=== PATIENT | male | born 2000 | race Caucasian/White ===

== ENCOUNTER 2018-03-11 12:34 | Emergency (ER) | payer OTHER ==
[2018-03-11 12:44] VITALS: BP 109/57; PULSE 65; TEMP 97.3; BMI 30.9
[2018-03-11] MEDS ORDERED: SODIUM CHLORIDE 0.9% 1000 ML INFUS.BAG IV ONE (12:49)
--- NOTE | 2018-03-11 12:49 | PDOC ---
History of Present Illness - General Chief Complaint: Syncope/Near Syncope Stated Complaint: SYNCOPE (RAPID RESPONSE) Time Seen by Provider: 03/11/18 12:48 Past History - Past Medical History Allergies/Adverse Reactions: Allergies Allergy/AdvReac Type Severity Reaction Status Date / Time No Known Allergies Allergy Verified 03/11/18 12:39 COPD: No - Suicide/Smoking/Psychosocial Hx Smoking History: Never smoked Have you smoked in the past 12 months: No Information on smoking cessation initiated: No Hx Alcohol Use: No Drug/Substance Use Hx: No Substance Use Type: None *Physical Exam - Vital Signs Last Vital Signs Temp Pulse Resp BP Pulse Ox 97.3 F L 65 20 109/57 99 03/11/18 12:40 03/11/18 12:40 03/11/18 12:40 03/11/18 12:40 03/11/18 12:40
--- NOTE | 2018-03-11 12:52 | PDOC ---
History of Present Illness - General Chief Complaint: Syncope/Near Syncope Stated Complaint: SYNCOPE (RAPID RESPONSE) Time Seen by Provider: 03/11/18 12:48 - History of Present Illness Initial Comments: Patient is 17 yo male, with no significant past medical history who presents to ED after rapid response in outpt lab department in [facility]. Pt had not eaten anything this AM and received blood draws this AM at [facility]. After receiving lab draws, pt went to bathroom and upon returning was noted by labor relations specialist to be tremulous with skin pallor. Pt was complaining of lightheadness, nausea at the time. Rapid response was called. Pt was given orange juice to drink and upon evaluation by ED staff during RR, his symptoms had improved, complaining only of mild nausea. Pt was taken to ED and evaluated. Vitals in ED were noted to be normal, BGM was ~150. 03/11/18 12:51 Past History - Past Medical History Allergies/Adverse Reactions: Allergies Allergy/AdvReac Type Severity Reaction Status Date / Time No Known Allergies Allergy Verified 03/11/18 12:39 Home Medications: Ambulatory Orders NK [No Known Home Medication] 03/11/18 COPD: No - Suicide/Smoking/Psychosocial Hx Smoking History: Never smoked Have you smoked in the past 12 months: No Information on smoking cessation initiated: No Hx Alcohol Use: No Drug/Substance Use Hx: No Substance Use Type: None Review of Systems - Review of Systems Comments:: GENERAL/CONSTITUTIONAL: No fever or chills. No weakness. HEAD, EYES, EARS, NOSE AND THROAT: No change in vision. No ear pain or discharge. No sore throat. CARDIOVASCULAR: No chest pain or shortness of breath RESPIRATORY: No cough, wheezing, or hemoptysis. GASTROINTESTINAL: No nausea, vomiting, diarrhea or constipation. GENITOURINARY: Mild nausea, now resolved. No dysuria, frequency, or change in urination. MUSCULOSKELETAL: No joint or muscle swelling or pain. No neck or back pain. SKIN: No rash NEUROLOGIC: No headache, vertigo, loss of consciousness, or change in strength/ sensation. ENDOCRINE: No increased thirst. No abnormal weight change HEMATOLOGIC/LYMPHATIC: No anemia, easy bleeding, or history of blood clots. ALLERGIC/IMMUNOLOGIC: No hives or skin allergy. 03/11/18 12:51 *Physical Exam - Vital Signs Last Vital Signs Temp Pulse Resp BP Pulse Ox 97.3 F L 65 20 109/57 99 03/11/18 12:40 03/11/18 12:40 03/11/18 12:40 03/11/18 12:40 03/11/18 12:47 - Physical Exam Comments: 03/11/18 12:52 GENERAL: Young man, Awake, alert, and fully oriented, in no acute distress HEAD: No signs of trauma, normocephalic, atraumatic EYES: PERRLA, EOMI, sclera anicteric, conjunctiva clear ENT: Auricles normal inspection, hearing grossly normal, nares patent, oropharynx clear without exudates. Moist mucosa NECK: Normal ROM, supple, no lymphadenopathy, JVD, or masses LUNGS: No distress, speaks full sentences, clear to auscultation bilaterally HEART: Regular rate and rhythm, normal S1 and S2, no murmurs, rubs or gallops, peripheral pulses normal and equal bilaterally. ABDOMEN: Soft, nontender, normoactive bowel sounds. No guarding, no rebound. No masses EXTREMITIES : Normal inspection, Normal range of motion, no edema. No clubbing or cyanosis. NEUROLOGICAL: Cranial nerves II through XII grossly intact. Normal speech, normal gait, no focal sensorimotor deficits SKIN: Warm, Dry, normal turgor, no rashes or lesions noted 03/11/18 13:00 Heart Score/ECG Review - ECG Intrepretation Rhythm: Regular Rhythm - [place]: Normal - P and HI Delta Wave(s) Present: No WPW: No - QRS Poor R Wave Progression: No Q Wave Present: No - ST and T Non Specific ST-T Wave changes: No - ECG Impressions Normal ECG: Yes Non-specific ST Elevation: No Ischemic Changes: No Bradycardia: Yes (rate of 58) Medical Decision Making - Medical Decision Making 17 yo man with no significant pmh who presented to ED after RR during outpt lab draw at [facility]. Pt was evaluated in ED, VSS, pt with no further symptoms and return to baseline. Labs unremarkable. BGM 150~. EKG normal. Pt likely with presyncope secondary to no PO intake in AM and stress of recent blood draw. Pre- syncope likely secondary to transient hypoglycemia vs. vasovagal response. Will discharge from ED home given resolution of symptoms. 03/11/18 13:00 Pt eloped before being evaluated by ED attending Dr. Steinberg. 03/11/18 13:42 *DC/Admit/Observation/Transfer Diagnosis at time of Disposition: Pre-syncope - Discharge Dispostion Disposition: HOME Condition at time of disposition: Good Decision to Admit order: No - Referrals Referrals: Joni Tse MD [Primary Care Provider] - - Patient Instructions Printed Discharge Instructions: DI for Syncope in Adults (Fainting) Additional Instructions: At [facility], you were evaluated in the ED due to a near-fainting episode when receiving outpt lab tests. You were evaluated by our ED staff and your vital signs, labs and EKG were determined to be normal. You are being discharged home with outpatient follow-up with your primary doctor. Please return to the hospital if you have any of the following symptoms. - Another episode of lightheadness or fainting - persistent headache, chest pain, or shortness of breathing - Numbness or weakness in your hands or feet - Any new or concerning symptoms. - Post Discharge Activity
--- NOTE | 2018-03-11 13:18 | PDOC ---
Attending Attestation - Resident Resident Name: Cam Zavala - ED Attending Attestation I have performed the following: I have examined & evaluated the patient, The case was reviewed & discussed with the resident, I agree w/resident's findings & plan, Exceptions are as noted - HPI HPI: 03/11/18 18:43 Agree with Residents note - Physicial Exam PE: 03/11/18 18:43 Agree with Residents Note - Medical Decision Making 03/11/18 18:43 Patient sent to the emergency department as rapid response syncopal episode while having blood drawn EKG demonstrates sinus rhythm no ST elevations or T-wave inversions no evidence of Brugada, but WPW, prolonged QT Blood work all within normal limits. Prior to receiving discharge instructions patient eloped from emergency department attempted to call patient at home but no answer <Xander Steinberg - Last Filed: 03/11/18 18:44> Heart Score/ECG Review - ECG Impressions Comment:: ECG reviewed by Dr. Steinberg at 13:16. Sinus bradycardia. Otherwise, normal ECG. Vent. Rate 58 bpm. DC Interval 172 ms. QRS duration 96ms. QT/QTc 398/390 ms. P-R-T axes 45 52 42 <Jackie Renner - Last Filed: 03/11/18 17:32> Attestations - Attestations Documentation prepared by Jackie Renner, acting as medical dir for Xander Steinberg MD. <Jackie Renner - Last Filed: 03/11/18 17:32>
--- NOTE | 2018-03-11 17:07 | EKG ---
Test Reason : Blood Pressure : / mmHG Vent. Rate : 058 BPM Atrial Rate : 058 BPM P-R Int : 172 ms QRS Dur : 096 ms QT Int : 398 ms P-R-T Axes : 045 052 042 degrees QTc Int : 390 ms SINUS BRADYCARDIA OTHERWISE NORMAL ECG NO PREVIOUS ECGS AVAILABLE Confirmed by MD ARTHUR, NALINI ([id number]) on 03/11/2018 5:07:35 PM Referred By: Confirmed By:NALIIN GIBSON MD
== END 2018-03-11 13:45 | disposition home or self-care (01) ==
LOC: JER 12:34
DX: R55 Syncope and collapse (principal)
CPT/HCPCS: 82962; 93005; 93010; 99282-25

== ENCOUNTER 2021-10-06 13:49 | Emergency (ER) | payer OTHER ==
[2021-10-06 14:00] VITALS: BMI 29.0
[2021-10-06] MEDS ORDERED: CASIRIVIMAB/IMDEVIMAB 10 ML in SODIUM CHLORIDE 100 ML IVPB ONE (14:38)
[2021-10-06 17:04] VITALS: TEMP 98.8
[2021-10-06 17:53] VITALS: BP 116/67; PULSE 66
== END 2021-10-06 17:53 | disposition home or self-care (01) ==
LOC: JCOVINFU 13:49 → JER 13:49 → JCOVINFU 17:53
DX: U07.1 COVID-19 (principal)
CPT/HCPCS: 99284-25; Q0240